=== PATIENT | female | born 1960 | race Caucasian/White ===

== ENCOUNTER 2022-05-07 13:06 | Outpatient (CLI) | payer OTHER ==
[2022-05-07] MEDS ORDERED: Iopamidol 300 61% 100 ML VIAL FS ONE (14:58)
== END 2022-05-07 13:07 | disposition home or self-care (01) ==
LOC: CSHCT 13:06
PROVIDERS: ATTEND Internal Medicine
DX: C34.90 Malignant neoplasm of unspecified part of unspecified bronchus or lung (principal); R91.8 Other nonspecific abnormal finding of lung field; J98.11 Atelectasis; N28.9 Disorder of kidney and ureter, unspecified; C79.72 Secondary malignant neoplasm of left adrenal gland
CPT/HCPCS: 71260; 74177; Q9967

== ENCOUNTER 2022-06-15 06:01 | Day surgery (SDC) | payer MEDICARE ==
[2022-06-15] MEDS ORDERED: Bupivacaine HCl 0.5%/Epinephrine 1:200,000/PF 30 ml Vial ONE (06:33)
[2022-06-15] MEDS ORDERED: Lidocaine 1% PF 5 ML VIAL ONE (06:41)
[2022-06-15] MEDS ORDERED: Fentanyl 100 MCG/2 ML VIAL ONE (06:41)
[2022-06-15] MEDS ORDERED: PROPOFOL 20 ML ONE (06:41)
[2022-06-15] MEDS ORDERED: Ondansetron PF 4 MG/2 ML Vial ONE (06:41)
[2022-06-15] MEDS ORDERED: Dexamethasone 4 mg/ml Vial ONE (06:41)
[2022-06-15] MEDS ORDERED: CEFAZOLIN 2 GM VIAL ONE (06:50)
[2022-06-15] MEDS ORDERED: Ketamine 50 MG/ML (10ML VIAL) ONE (06:50)
[2022-06-15] MEDS ORDERED: Midazolam HCl 2 mg/2 ml Vial ONE (06:53)
== END 2022-06-15 08:25 | disposition home or self-care (01) ==
LOC: CSHSDC 06:01
PROVIDERS: ATTEND Surgery
PROC: 0JH60WZ Insertion of Totally Implantable Vascular Access Device into Chest Subcutaneous Tissue and Fascia, Open Approach (ICD-10-PCS; principal; 2022-06-15)
DX: C34.81 Malignant neoplasm of overlapping sites of right bronchus and lung (principal); E11.9 Type 2 diabetes mellitus without complications; G20 Parkinson's disease; E78.00 Pure hypercholesterolemia, unspecified; K21.9 Gastro-esophageal reflux disease without esophagitis; Z79.84 Long term (current) use of oral hypoglycemic drugs; Z79.899 Other long term (current) drug therapy
CPT/HCPCS: 36561; 71045; C1788; J1100; J1642; J2250; J2405; J2704; J3010

== ENCOUNTER 2022-08-04 09:01 | Outpatient (CLI) | payer OTHER ==
[2022-08-04] MEDS ORDERED: Iopamidol 300 61% 100 ML VIAL FS ONE (09:18)
== END 2022-08-04 09:02 | disposition home or self-care (01) ==
LOC: CSHCT 09:01
PROVIDERS: ATTEND Internal Medicine
DX: C34.90 Malignant neoplasm of unspecified part of unspecified bronchus or lung (principal); J98.4 Other disorders of lung; R05.9 Cough, unspecified; E27.8 Other specified disorders of adrenal gland; J98.59 Other diseases of mediastinum, not elsewhere classified; K76.9 Liver disease, unspecified; I82.C12 Acute embolism and thrombosis of left internal jugular vein; Z96.89 Presence of other specified functional implants
CPT/HCPCS: 71260; 74177